=== PATIENT | male | born 1965 | race Caucasian/White ===

== ENCOUNTER → 2020-11-04 | Outpatient (CLI) | payer SELFPAY | LOC: M LABSMTC 10:04 | PROVIDERS: ATTEND Pediatrics | DX: Z20.822 Contact with and (suspected) exposure to COVID-19 (principal) ==

== ENCOUNTER 2021-09-12 17:58 | Inpatient (IN) | payer BC ==
[~2021-09-12] VITALS: Ht 198.1 cm; Wt 145.1 kg
[2021-09-12 18:46] LABS: BASO % 0.3 % (0.0-1.0); EOS % 0.2 % (0.0-3.0); HEMATOCRIT 43.1 % (42.0-52.0); HEMOGLOBIN 14.4 g/dl (13.5-17.5); LYMPH # 0.9 10^3/uL (1.5-5.0); LYMPH % 10.3 % (24.0-44.0); MEAN CORPUSCULAR HEMOGLOBIN 31.2 pg (27.0-33.0); MEAN CORPUSCULAR HGB CONC 33.4 g/dl (32.0-36.5); MEAN CORPUSCULAR VOLUME 93.3 fl (80.0-96.0); MONO # 0.5 10^3/uL (0.0-0.8); MONO % 5.4 % (2.0-8.0); NEUTROPHILS # 7.2 10^3/uL (1.5-8.5); NEUTROPHILS % 83.6 % (36.0-66.0); PLATELET COUNT, AUTOMATED 368 10^3/uL (150-450); RED BLOOD COUNT 4.62 10^6/uL (4.30-6.10); WHITE BLOOD COUNT 8.7 10^3/uL (4.0-10.0)
[2021-09-12 18:57] LABS: INR 0.86; PROTHROMBIN TIME 12.1 SECONDS (12.7-14.5)
[2021-09-12 18:58] LABS: PARTIAL THROMBOPLASTIN TIME 31.4 SECONDS (25.9-37.0)
[2021-09-12 19:00] LABS: D-DIMER QUANT 1611.01 ng/ml (<500)
[2021-09-12 19:07] LABS: ALBUMIN 3.1 GM/DL (3.2-5.2); ALT/SGPT 66 U/L (12-78); BILIRUBIN,TOTAL 0.4 MG/DL (0.2-1.0); BLOOD UREA NITROGEN 14 MG/DL (7-18); C REACTIVE PROTEIN QUANTITATIV 8.36 MG/DL (0.00-0.30); CALCIUM LEVEL 8.5 MG/DL (8.5-10.1); CARBON DIOXIDE LEVEL 20 MEQ/L (21-32); CHLORIDE LEVEL 112 MEQ/L (98-107); CREATININE FOR GFR 1.03 MG/DL (0.70-1.30); FERRITIN 437 NG/ML (26-388); GLOMERULAR FILTRATION RATE > 60.0 (>56); GLUCOSE, FASTING 114 MG/DL (70-100); LDH LACTATE DEHYDROGENASE 456 U/L (87-241); POTASSIUM SERUM 3.6 MEQ/L (3.5-5.1); SODIUM LEVEL 143 MEQ/L (136-145); TOTAL PROTEIN 7.1 GM/DL (6.4-8.2)
[2021-09-12 19:09] LABS: CK-MB VALUE MASS < 1.0 NG/ML (<3.6); CPK CREATINE PHOSPHOKINASE 248 U/L (39-308); TROPONIN I < 0.02 NG/ML (< 0.10)
[2021-09-12] MEDS ORDERED: HOME MED LIST COMPLETE! XX SCH (19:45)
[2021-09-12] MEDS ORDERED: ONDANSETRON 4MG/2ML VIAL IV PRN (22:20)
[2021-09-12] MEDS ORDERED: **hydrALAZINE** 10 MG TAB PO PRN (22:25)
[2021-09-13] MEDS ORDERED: REMDESIVIR 200 MG in NS 250 ML IV ONE ×2
[2021-09-13] MEDS: guaiFENesin ER 600 MG TAB PO SCH ×3 (00:09→20:39)
[2021-09-13] MEDS: IPRATROPIUM 0.5MG/ALBUTEROL 2.5MG INH SOL UD 3ML (DUONEB) NEB PRN ×2 (01:59→05:14)
[2021-09-13] MEDS ORDERED: SODIUM CHLORIDE 0.9% INJ 10 ML SYR IV ONE (02:00)
[2021-09-13 08:37] LABS: HEMATOCRIT 40.1 % (42.0-52.0); HEMOGLOBIN 13.6 g/dl (13.5-17.5); MEAN CORPUSCULAR HEMOGLOBIN 31.5 pg (27.0-33.0); MEAN CORPUSCULAR HGB CONC 33.9 g/dl (32.0-36.5); MEAN CORPUSCULAR VOLUME 92.8 fl (80.0-96.0); PLATELET COUNT, AUTOMATED 345 10^3/uL (150-450); RED BLOOD COUNT 4.32 10^6/uL (4.30-6.10); WHITE BLOOD COUNT 4.7 10^3/uL (4.0-10.0)
[2021-09-13 08:58] LABS: ANISOCYTOSIS 1+; ATYPICAL LYMPH 4 % (0-5); LYMPHOCYTES 15 % (16-44); MONOCYTES 9 % (0-5); NEUTROPHILS 72 % (28-66); PLATELET ESTIMATE NORMAL (NORMAL)
[2021-09-13] MEDS ORDERED: dexameTHASONE 4 MG/ML 1ML VIAL (J1100 PER 1MG) IV SCH (09:00)
[2021-09-13 09:03] LABS: BLOOD UREA NITROGEN 16 MG/DL (7-18); CALCIUM LEVEL 8.7 MG/DL (8.5-10.1); CARBON DIOXIDE LEVEL 22 MEQ/L (21-32); CHLORIDE LEVEL 114 MEQ/L (98-107); CREATININE FOR GFR 1.04 MG/DL (0.70-1.30); GLOMERULAR FILTRATION RATE > 60.0 (>56); GLUCOSE, FASTING 131 MG/DL (70-100); MAGNESIUM LEVEL 2.3 MG/DL (1.8-2.4); POTASSIUM SERUM 3.7 MEQ/L (3.5-5.1); SODIUM LEVEL 145 MEQ/L (136-145)
[2021-09-13] MEDS: ENOXAPARIN 40MG/0.4ML SYRINGE (J1650 PER 10MG) SC SCH (10:02)
[2021-09-13] MEDS: ASPIRIN 81 MG CHEW TABLET PO SCH (10:02)
[2021-09-13] MEDS: FLUTICASONE PROP 0.05% NASAL SPRAY 16 GM (FLONASE) NARES SCH ×3 (10:02→20:39)
[2021-09-13 11:40] VITALS: BP 146/90
[2021-09-13 12:00] VITALS: O2SAT 93
[2021-09-13 14:00] VITALS: BP 151/100
[2021-09-13 16:00] VITALS: O2SAT 93
[2021-09-13 20:00] VITALS: BP 145/72; O2SAT 95
[2021-09-13] MEDS: ALBUTEROL 90 MCG/ACT 8GM HFA INHALER INH SCH (20:19)
[2021-09-14] VITALS (7 sets, daily range): BP systolic 119–154; BP diastolic 62–73; O2SAT 90–99
[2021-09-14] MEDS: REMDESIVIR 100 MG in NS 250 ML IV SCH (00:48)
[2021-09-14] MEDS: SODIUM CHLORIDE 0.9% INJ 10 ML SYR IV SCH (01:50)
[2021-09-14 08:13] LABS: BASO % 0.3 % (0.0-1.0); EOS % 0.1 % (0.0-3.0); HEMATOCRIT 39.8 % (42.0-52.0); HEMOGLOBIN 13.4 g/dl (13.5-17.5); LYMPH % 13.7 % (24.0-44.0); MEAN CORPUSCULAR HEMOGLOBIN 31.1 pg (27.0-33.0); MEAN CORPUSCULAR HGB CONC 33.7 g/dl (32.0-36.5); MEAN CORPUSCULAR VOLUME 92.3 fl (80.0-96.0); MONO # 0.5 10^3/uL (0.0-0.8); MONO % 6.1 % (2.0-8.0); NEUTROPHILS # 5.9 10^3/uL (1.5-8.5); NEUTROPHILS % 79.4 % (36.0-66.0); PLATELET COUNT, AUTOMATED 407 10^3/uL (150-450); RED BLOOD COUNT 4.31 10^6/uL (4.30-6.10); WHITE BLOOD COUNT 7.4 10^3/uL (4.0-10.0)
[2021-09-14] MEDS: guaiFENesin ER 600 MG TAB PO SCH ×2 (08:22→21:46)
[2021-09-14] MEDS: ENOXAPARIN 40MG/0.4ML SYRINGE (J1650 PER 10MG) SC SCH (08:22)
[2021-09-14] MEDS: ASPIRIN 81 MG CHEW TABLET PO SCH (08:22)
[2021-09-14] MEDS: dexameTHASONE 4 MG/ML 1ML VIAL (J1100 PER 1MG) IV SCH (08:23)
[2021-09-14] MEDS: FLUTICASONE PROP 0.05% NASAL SPRAY 16 GM (FLONASE) NARES SCH ×2 (08:23→21:46)
[2021-09-14] MEDS: ALBUTEROL 90 MCG/ACT 8GM HFA INHALER INH SCH ×4 (08:28→19:51)
[2021-09-14 08:39] LABS: ALBUMIN 2.7 GM/DL (3.2-5.2); ALT/SGPT 47 U/L (12-78); BILIRUBIN,DIRECT 0.1 MG/DL (0.0-0.2); BILIRUBIN,TOTAL 0.3 MG/DL (0.2-1.0); BLOOD UREA NITROGEN 24 MG/DL (7-18); CALCIUM LEVEL 8.9 MG/DL (8.5-10.1); CARBON DIOXIDE LEVEL 24 MEQ/L (21-32); CHLORIDE LEVEL 112 MEQ/L (98-107); FERRITIN 298 NG/ML (26-388); GLOMERULAR FILTRATION RATE > 60.0 (>56); GLUCOSE, FASTING 116 MG/DL (70-100); LDH LACTATE DEHYDROGENASE 299 U/L (87-241); MAGNESIUM LEVEL 2.3 MG/DL (1.8-2.4); NT-PRO BNP 109 PG/ML (<125); POTASSIUM SERUM 3.6 MEQ/L (3.5-5.1); SODIUM LEVEL 144 MEQ/L (136-145)
[2021-09-14 08:46] LABS: CPK CREATINE PHOSPHOKINASE 488 U/L (39-308); TROPONIN I < 0.02 NG/ML (< 0.10)
[2021-09-14] MEDS ORDERED: dexameTHASONE 20MG/5ML VIAL (J1100 PER 1MG) IV SCH (09:00)
[2021-09-14 09:11] LABS: INR 0.99; PROTHROMBIN TIME 13.5 SECONDS (12.7-14.5)
[2021-09-14 09:12] LABS: PARTIAL THROMBOPLASTIN TIME 28.8 SECONDS (25.9-37.0)
[2021-09-15] VITALS (9 sets, daily range): BP systolic 123–133; BP diastolic 69–80; O2SAT 92–98
[2021-09-15] MEDS: REMDESIVIR 100 MG in NS 250 ML IV SCH ×2 (00:17→23:57)
[2021-09-15] MEDS: SODIUM CHLORIDE 0.9% INJ 10 ML SYR IV SCH (02:04)
[2021-09-15] MEDS: ACETAMINOPHEN TAB 650MG DOSE (2X325MG) PO PRN ×3 (02:12→17:03)
[2021-09-15] MEDS: ALBUTEROL 90 MCG/ACT 8GM HFA INHALER INH SCH ×4 (07:30→19:25)
[2021-09-15 07:35] LABS: BASO % 0.2 % (0.0-1.0); EOS % 0.3 % (0.0-3.0); HEMATOCRIT 36.4 % (42.0-52.0); HEMOGLOBIN 12.2 g/dl (13.5-17.5); LYMPH # 1.4 10^3/uL (1.5-5.0); LYMPH % 14.5 % (24.0-44.0); MEAN CORPUSCULAR HEMOGLOBIN 31.1 pg (27.0-33.0); MEAN CORPUSCULAR HGB CONC 33.5 g/dl (32.0-36.5); MEAN CORPUSCULAR VOLUME 92.9 fl (80.0-96.0); MONO # 0.6 10^3/uL (0.0-0.8); MONO % 6.8 % (2.0-8.0); NEUTROPHILS # 7.3 10^3/uL (1.5-8.5); NEUTROPHILS % 77.8 % (36.0-66.0); PLATELET COUNT, AUTOMATED 386 10^3/uL (150-450); RED BLOOD COUNT 3.92 10^6/uL (4.30-6.10); WHITE BLOOD COUNT 9.3 10^3/uL (4.0-10.0)
[2021-09-15 08:00] LABS: BLOOD UREA NITROGEN 24 MG/DL (7-18); CALCIUM LEVEL 8.2 MG/DL (8.5-10.1); CARBON DIOXIDE LEVEL 24 MEQ/L (21-32); CHLORIDE LEVEL 112 MEQ/L (98-107); CREATININE FOR GFR 0.92 MG/DL (0.70-1.30); GLOMERULAR FILTRATION RATE > 60.0 (>56); GLUCOSE, FASTING 97 MG/DL (70-100); MAGNESIUM LEVEL 2.4 MG/DL (1.8-2.4); SODIUM LEVEL 143 MEQ/L (136-145)
[2021-09-15] MEDS: FLUTICASONE PROP 0.05% NASAL SPRAY 16 GM (FLONASE) NARES SCH ×2 (09:00→20:16)
[2021-09-15] MEDS: guaiFENesin ER 600 MG TAB PO SCH ×2 (09:15→20:16)
[2021-09-15] MEDS: dexameTHASONE 4 MG/ML 1ML VIAL (J1100 PER 1MG) IV SCH (09:15)
[2021-09-15] MEDS: ASPIRIN 81 MG CHEW TABLET PO SCH (09:15)
[2021-09-15] MEDS: ENOXAPARIN 40MG/0.4ML SYRINGE (J1650 PER 10MG) SC SCH (09:16)
[2021-09-16] VITALS (7 sets, daily range): BP systolic 130–148; BP diastolic 80–88; O2SAT 92–96
[2021-09-16] MEDS: ACETAMINOPHEN TAB 650MG DOSE (2X325MG) PO PRN ×2 (01:31→11:12)
[2021-09-16] MEDS: SODIUM CHLORIDE 0.9% INJ 10 ML SYR IV SCH (01:32)
[2021-09-16 07:23] LABS: BASO % 0.4 % (0.0-1.0); EOS # 0.3 10^3/uL (0.0-0.5); EOS % 3.8 % (0.0-3.0); HEMATOCRIT 38.1 % (42.0-52.0); HEMOGLOBIN 12.5 g/dl (13.5-17.5); LYMPH % 28.1 % (24.0-44.0); MEAN CORPUSCULAR HEMOGLOBIN 30.9 pg (27.0-33.0); MEAN CORPUSCULAR HGB CONC 32.8 g/dl (32.0-36.5); MEAN CORPUSCULAR VOLUME 94.3 fl (80.0-96.0); MONO # 0.7 10^3/uL (0.0-0.8); MONO % 9.9 % (2.0-8.0); NEUTROPHILS # 4.1 10^3/uL (1.5-8.5); NEUTROPHILS % 57.2 % (36.0-66.0); PLATELET COUNT, AUTOMATED 391 10^3/uL (150-450); RED BLOOD COUNT 4.04 10^6/uL (4.30-6.10); WHITE BLOOD COUNT 7.2 10^3/uL (4.0-10.0)
[2021-09-16 07:36] LABS: INR 1.04; PARTIAL THROMBOPLASTIN TIME 29.7 SECONDS (25.9-37.0)
[2021-09-16 07:57] LABS: ALBUMIN 2.4 GM/DL (3.2-5.2); ALT/SGPT 47 U/L (12-78); BILIRUBIN,DIRECT 0.1 MG/DL (0.0-0.2); BILIRUBIN,TOTAL 0.4 MG/DL (0.2-1.0); BLOOD UREA NITROGEN 16 MG/DL (7-18); CALCIUM LEVEL 8.4 MG/DL (8.5-10.1); CARBON DIOXIDE LEVEL 24 MEQ/L (21-32); CHLORIDE LEVEL 110 MEQ/L (98-107); CREATININE FOR GFR 0.84 MG/DL (0.70-1.30); FERRITIN 243 NG/ML (26-388); GLOMERULAR FILTRATION RATE > 60.0 (>56); GLUCOSE, FASTING 90 MG/DL (70-100); LDH LACTATE DEHYDROGENASE 252 U/L (87-241); MAGNESIUM LEVEL 2.3 MG/DL (1.8-2.4); NT-PRO BNP 298 PG/ML (<125); POTASSIUM SERUM 3.5 MEQ/L (3.5-5.1); SODIUM LEVEL 142 MEQ/L (136-145); TOTAL PROTEIN 6.5 GM/DL (6.4-8.2)
[2021-09-16] MEDS: ALBUTEROL 90 MCG/ACT 8GM HFA INHALER INH SCH ×4 (07:58→20:46)
[2021-09-16] MEDS: FLUTICASONE PROP 0.05% NASAL SPRAY 16 GM (FLONASE) NARES SCH ×2 (08:57→21:00)
[2021-09-16] MEDS: guaiFENesin ER 600 MG TAB PO SCH ×2 (08:57→21:04)
[2021-09-16] MEDS: ASPIRIN 81 MG CHEW TABLET PO SCH (08:57)
[2021-09-16] MEDS: dexameTHASONE 4 MG/ML 1ML VIAL (J1100 PER 1MG) IV SCH (08:57)
[2021-09-16] MEDS: ENOXAPARIN 40MG/0.4ML SYRINGE (J1650 PER 10MG) SC SCH (08:58)
[2021-09-16] MEDS ORDERED: KETOROLAC 30 MG/ML 1ML VIAL IV ONE (10:00)
[2021-09-17] MEDS: REMDESIVIR 100 MG in NS 250 ML IV SCH (00:33)
[2021-09-17] MEDS: SODIUM CHLORIDE 0.9% INJ 10 ML SYR IV SCH (00:34)
[2021-09-17 00:53] VITALS: O2SAT 93
[2021-09-17 04:00] VITALS: O2SAT 95
[2021-09-17 06:00] VITALS: BP 140/64
[2021-09-17 08:00] VITALS: O2SAT 93
[2021-09-17] MEDS: ALBUTEROL 90 MCG/ACT 8GM HFA INHALER INH SCH ×3 (08:09→15:10)
[2021-09-17 08:22] LABS: BASO % 0.2 % (0.0-1.0); EOS # 0.1 10^3/uL (0.0-0.5); EOS % 1.2 % (0.0-3.0); HEMATOCRIT 37.2 % (42.0-52.0); HEMOGLOBIN 12.3 g/dl (13.5-17.5); LYMPH # 1.9 10^3/uL (1.5-5.0); LYMPH % 21.7 % (24.0-44.0); MEAN CORPUSCULAR HEMOGLOBIN 31.1 pg (27.0-33.0); MEAN CORPUSCULAR HGB CONC 33.1 g/dl (32.0-36.5); MEAN CORPUSCULAR VOLUME 93.9 fl (80.0-96.0); MONO # 0.8 10^3/uL (0.0-0.8); MONO % 8.6 % (2.0-8.0); NEUTROPHILS % 67.6 % (36.0-66.0); PLATELET COUNT, AUTOMATED 423 10^3/uL (150-450); RED BLOOD COUNT 3.96 10^6/uL (4.30-6.10); WHITE BLOOD COUNT 8.8 10^3/uL (4.0-10.0)
[2021-09-17 08:52] LABS: BLOOD UREA NITROGEN 20 MG/DL (7-18); CALCIUM LEVEL 8.6 MG/DL (8.5-10.1); CARBON DIOXIDE LEVEL 23 MEQ/L (21-32); CHLORIDE LEVEL 112 MEQ/L (98-107); CREATININE FOR GFR 0.84 MG/DL (0.70-1.30); GLOMERULAR FILTRATION RATE > 60.0 (>56); GLUCOSE, FASTING 106 MG/DL (70-100); MAGNESIUM LEVEL 2.2 MG/DL (1.8-2.4); POTASSIUM SERUM 3.7 MEQ/L (3.5-5.1); SODIUM LEVEL 142 MEQ/L (136-145)
[2021-09-17] MEDS: FLUTICASONE PROP 0.05% NASAL SPRAY 16 GM (FLONASE) NARES SCH (09:00)
[2021-09-17] MEDS: guaiFENesin ER 600 MG TAB PO SCH (09:12)
[2021-09-17] MEDS: ENOXAPARIN 40MG/0.4ML SYRINGE (J1650 PER 10MG) SC SCH (09:12)
[2021-09-17] MEDS: ASPIRIN 81 MG CHEW TABLET PO SCH (09:12)
[2021-09-17] MEDS: dexameTHASONE 4 MG/ML 1ML VIAL (J1100 PER 1MG) IV SCH (09:13)
[2021-09-17 12:00] VITALS: O2SAT 95
[2021-09-17] MEDS ORDERED: PRED10TA2 PO (13:17)
== END 2021-09-17 15:12 | disposition home or self-care (01) | DRG 137 ==
LOC: EDBD 17:58 → M ED 17:58 → M ED INP 21:46 → ENRESERV 09-13 09:10 → M 4MAIN 09-13 11:10
PROVIDERS: ADMIT Internal Medicine; ATTEND Family Medicine
DX: U07.1 COVID-19 (principal); J96.01 Acute respiratory failure with hypoxia; J12.82 Pneumonia due to coronavirus disease 2019; E66.9 Obesity, unspecified; Z90.81 Acquired absence of spleen; Z68.36 Body mass index [BMI] 36.0-36.9, adult

== ENCOUNTER 2022-01-06 10:12 | Emergency (ER) | payer BC ==
[~2022-01-06] VITALS: Ht 198.1 cm; Wt 151.0 kg
[~2022-01-06 10:12] MED LIST: PRED10TA2 PO
[2022-01-06] MEDS ORDERED: IPRATROPIUM 0.5MG/ALBUTEROL 2.5MG INH SOL UD 3ML (DUONEB) NEB ONE (13:25)
[2022-01-06 13:59] LABS: BASO # 0.1 10^3/uL (0.0-0.2); BASO % 0.6 % (0.0-1.0); EOS # 0.1 10^3/uL (0.0-0.5); EOS % 0.5 % (0.0-3.0); HEMATOCRIT 45.7 % (42.0-52.0); HEMOGLOBIN 15.1 g/dl (13.5-17.5); LYMPH % 19.7 % (24.0-44.0); MEAN CORPUSCULAR HEMOGLOBIN 30.9 pg (27.0-33.0); MEAN CORPUSCULAR VOLUME 93.5 fl (80.0-96.0); MONO # 0.4 10^3/uL (0.0-0.8); MONO % 3.7 % (2.0-8.0); NEUTROPHILS # 7.7 10^3/uL (1.5-8.5); NEUTROPHILS % 75.2 % (36.0-66.0); PLATELET COUNT, AUTOMATED 335 10^3/uL (150-450); RED BLOOD COUNT 4.89 10^6/uL (4.30-6.10); WHITE BLOOD COUNT 10.3 10^3/uL (4.0-10.0)
[2022-01-06] MEDS ORDERED: FLUTISP (14:07)
[2022-01-06] MEDS ORDERED: LORA-674 PO (14:07)
[2022-01-06 14:29] LABS: CK-MB VALUE MASS 1.4 NG/ML (<3.6); MB/CK RELATIVE INDEX 0.62 (< OR =4)
[2022-01-06] MEDS ORDERED: ISOVUE-370 76% 100ML VIAL As Ordered ONE (15:29)
[2022-01-06] MEDS ORDERED: PROAAER10 INH (16:02)
[2022-01-06 16:23] VITALS: BP 138/93
== END 2022-01-06 16:50 | disposition home or self-care (01) ==
LOC: M ED 10:12
DX: R06.02 Shortness of breath (principal); I10 Essential (primary) hypertension; Z86.16 Personal history of COVID-19; Z79.899 Other long term (current) drug therapy
CPT/HCPCS: 36415; 71046; 71275; 80047; 82550; 82553; 84484; 85025; 85379; 93005; 94640; 99284; Q9967

== ENCOUNTER 2022-01-14 14:14 | Emergency (ER) | payer BC ==
[~2022-01-14] VITALS: Ht 200.7 cm; Wt 147.0 kg
[~2022-01-14 14:14] MED LIST changes: +FLUTISP; +LORA-674 PO; +PROAAER10 INH
[2022-01-14 16:03] LABS: BASO # 0.1 10^3/uL (0.0-0.2); BASO % 0.8 % (0.0-1.0); EOS # 0.2 10^3/uL (0.0-0.5); EOS % 2.1 % (0.0-3.0); HEMATOCRIT 40.9 % (42.0-52.0); HEMOGLOBIN 13.9 g/dl (13.5-17.5); LYMPH # 1.8 10^3/uL (1.5-5.0); LYMPH % 22.8 % (24.0-44.0); MEAN CORPUSCULAR HEMOGLOBIN 31.4 pg (27.0-33.0); MEAN CORPUSCULAR VOLUME 92.5 fl (80.0-96.0); MONO # 0.5 10^3/uL (0.0-0.8); MONO % 6.5 % (2.0-8.0); NEUTROPHILS # 5.3 10^3/uL (1.5-8.5); NEUTROPHILS % 67.5 % (36.0-66.0); PLATELET COUNT, AUTOMATED 320 10^3/uL (150-450); RED BLOOD COUNT 4.42 10^6/uL (4.30-6.10); WHITE BLOOD COUNT 7.8 10^3/uL (4.0-10.0)
[2022-01-14 16:42] LABS: ALBUMIN 4.1 GM/DL (3.2-5.2); ALT/SGPT 34 U/L (12-78); BILIRUBIN,DIRECT < 0.1 MG/DL (0.0-0.2); BILIRUBIN,TOTAL 0.5 MG/DL (0.2-1.0); BLOOD UREA NITROGEN 15 MG/DL (7-18); CALCIUM LEVEL 9.1 MG/DL (8.5-10.1); CARBON DIOXIDE LEVEL 24 MEQ/L (21-32); CHLORIDE LEVEL 110 MEQ/L (98-107); CREATININE FOR GFR 1.21 MG/DL (0.70-1.30); GLOMERULAR FILTRATION RATE > 60.0 (>56); GLUCOSE, FASTING 111 MG/DL (70-100); NT-PRO BNP 40 PG/ML (<125); POTASSIUM SERUM 5.4 MEQ/L (3.5-5.1); SODIUM LEVEL 137 MEQ/L (136-145); TOTAL PROTEIN 7.6 GM/DL (6.4-8.2)
[2022-01-14 18:14] VITALS: BP 144/96
== END 2022-01-14 18:20 | disposition home or self-care (01) ==
LOC: M ED 14:14
DX: R09.82 Postnasal drip (principal); R05.9 Cough, unspecified; R06.00 Dyspnea, unspecified; I10 Essential (primary) hypertension; Z86.16 Personal history of COVID-19; Z79.51 Long term (current) use of inhaled steroids; Z79.899 Other long term (current) drug therapy

== ENCOUNTER → 2022-03-23 | Outpatient (CLI) | payer BC ==
[~2022-03-23] MED LIST changes: +ASHW500C PO; +MONT10TA97
== END ==
LOC: M LABSMTC 10:38
PROVIDERS: ATTEND Anesthesiology
DX: Z20.828 Contact with and (suspected) exposure to other viral communicable diseases (principal); Z11.59 Encounter for screening for other viral diseases

== ENCOUNTER 2022-03-28 09:17 | Day surgery (SDC) | payer BC ==
[~2022-03-28] VITALS: Ht 198.1 cm; Wt 127.4 kg
[2022-03-28] MEDS ORDERED: MELA10CA6 PO (10:04)
[2022-03-28] MEDS ORDERED: LR 1,000 ML IV SCH ×3 (10:20→15:00)
[2022-03-28] MEDS ORDERED: OXYMETAZOLINE 0.05% NASAL SPRAY (AFRIN) As Ordered ONE (12:14)
[2022-03-28] MEDS ORDERED: COCAINE 4% 4ML NASAL SOLUTION BTL As Ordered ONE (12:14)
[2022-03-28] MEDS ORDERED: LIDOCAINE W/EPINEPHRINE 1% 20ML VIAL As Ordered ONE (12:14)
[2022-03-28] MEDS ORDERED: ROCURONIUM BROMIDE 50 MG/5 ML VIAL As Ordered ONE (13:01)
[2022-03-28] MEDS ORDERED: propofoL 200 MG/20 ML VIAL As Ordered ONE (13:01)
[2022-03-28] MEDS ORDERED: dexameTHASONE 4 MG/ML 1ML VIAL (J1100 PER 1MG) As Ordered ONE (13:01)
[2022-03-28] MEDS ORDERED: MIDAZOLAM INJ 2MG/2ML VIAL (J2250 PER 1MG) As Ordered ONE (13:01)
[2022-03-28] MEDS ORDERED: LIDOCAINE 2% 100MG/5ML SDV (FOR ANES.) As Ordered ONE (13:01)
[2022-03-28] MEDS ORDERED: SUGAMMADEX SODIUM 500 MG/5 ML VIAL (BRIDION) As Ordered ONE (13:01)
[2022-03-28] MEDS ORDERED: ePHEDrine SULFATE 25 MG/5 ML(5MG/ML) SYRINGE As Ordered ONE (13:01)
[2022-03-28] MEDS ORDERED: fentaNYL 250 MCG/5 ML INJECTION As Ordered ONE (13:01)
[2022-03-28] MEDS ORDERED: ONDANSETRON 4MG/2ML VIAL As Ordered ONE (13:01)
[2022-03-28] MEDS ORDERED: fentaNYL 100 MCG/2 ML INJECTION IV PRN (14:15)
[2022-03-28] MEDS ORDERED: ONDANSETRON 4MG/2ML VIAL IV PRN ×2 (14:15→15:05)
[2022-03-28] MEDS ORDERED: oxyCODONE 5MG TAB PO PRN (14:15)
[2022-03-28] MEDS ORDERED: MORPHINE 2 MG/ML 1ML VIAL IV PRN (14:15)
[2022-03-28] MEDS ORDERED: ALBUTEROL SULFATE 2.5 MG/0.5 ML INH NEB SOLN INH ONE (14:30)
[2022-03-28] MEDS ORDERED: ACETAMINOPHEN *IV* 1,000 MG in IV 1 EA IV ONE (15:05)
[2022-03-28] MEDS ORDERED: ANEXSIA, NORCO 7.5MG/325MG TABLET(HYDROCODONE/APAP) PO PRN (15:05)
[2022-03-28] MEDS ORDERED: MORPHINE 10 MG/ML 1ML VIAL IV PRN (15:05)
[2022-03-28 17:12] VITALS: BP 132/82
[2022-03-29] MEDS ORDERED: AMOX500C (07:42)
[2022-03-29] MEDS ORDERED: HYDR-4514 (07:42)
== END 2022-03-28 17:20 | disposition home or self-care (01) ==
LOC: M SDC 09:17
PROVIDERS: ATTEND Otolaryngology
DX: J34.2 Deviated nasal septum (principal); J34.3 Hypertrophy of nasal turbinates; F41.9 Anxiety disorder, unspecified; R51.9 Headache, unspecified; Z79.51 Long term (current) use of inhaled steroids; Z79.899 Other long term (current) drug therapy
CPT/HCPCS: 30520; 30802; 88300; C9046; J0131; J1100; J2250; J2405; J3010

== ENCOUNTER 2022-03-29 07:25 | Emergency (ER) | payer BC ==
[~2022-03-29] VITALS: Ht 198.1 cm; Wt 129.4 kg
[~2022-03-29 07:25] MED LIST changes: +MELA10CA6 PO
[2022-03-29 07:27] VITALS: BP 135/79
[2022-03-29] MEDS ORDERED: HYDR-4514 (07:42)
[2022-03-29] MEDS ORDERED: AMOX500C (07:42)
== END 2022-03-29 08:43 | disposition left against medical advice (07) ==
LOC: M ED 08:39
DX: Z53.21 Procedure and treatment not carried out due to patient leaving prior to being seen by health care provider (principal)

== ENCOUNTER → 2022-04-12 | Outpatient (CLI) | payer BC ==
[~2022-04-12] MED LIST changes: +AMOX500C; +HYDR-4514
[2022-04-12 15:20] LABS: HEMOGLOBIN A1c 5.8 %
[2022-04-12 15:46] LABS: BLOOD UREA NITROGEN 16 MG/DL (7-18); CALCIUM LEVEL 9.6 MG/DL (8.5-10.1); CARBON DIOXIDE LEVEL 27 MEQ/L (21-32); CHLORIDE LEVEL 108 MEQ/L (98-107); CHOLESTEROL LEVEL 190 MG/DL (<200); CHOLESTEROL RISK RATIO 4.634 (<5); CREATININE FOR GFR 0.98 MG/DL (0.70-1.30); GLOMERULAR FILTRATION RATE > 60.0 (>56); GLUCOSE, FASTING 121 MG/DL (70-100); HDL CHOLESTEROL 41 MG/DL (>40); LDL CHOLESTEROL 97 MG/DL (<100); NON-HDL-C 149 MG/DL; POTASSIUM SERUM 4.3 MEQ/L (3.5-5.1); SODIUM LEVEL 142 MEQ/L (136-145); TRIGLYCERIDES LEVEL 262 MG/DL (<150)
== END ==
LOC: M LAB 14:00
PROVIDERS: ATTEND Family Medicine
DX: Z13.1 Encounter for screening for diabetes mellitus (principal); Z13.220 Encounter for screening for lipoid disorders

== ENCOUNTER 2023-02-27 02:36 | Emergency (ER) | payer BC, SELFPAY ==
[~2023-02-27] VITALS: Ht 193 cm; Wt 137.4 kg
[~2023-02-27 02:36] MED LIST changes: +FLUT50SP17; -FLUTISP
[2023-02-27] MEDS ORDERED: [UNRECOGNIZED DRUG - OTHER] PO (02:47)
[2023-02-27] MEDS ORDERED: KETOROLAC 30 MG/ML 1ML VIAL IV ONE (03:40)
[2023-02-27] MEDS ORDERED: ONDANSETRON 4MG 2ML VIAL As Ordered ONE (03:43)
[2023-02-27 03:45] LABS: BASO # 0.1 10^3/uL (0.0-0.2); BASO % 0.9 % (0.0-1.0); EOS # 0.1 10^3/uL (0.0-0.5); EOS % 1.8 % (0.0-3.0); HEMOGLOBIN 14.1 g/dl (13.5-17.5); LYMPH # 1.2 10^3/uL (1.5-5.0); LYMPH % 16.1 % (24.0-44.0); MEAN CORPUSCULAR HGB CONC 32.8 g/dl (32.0-36.5); MEAN CORPUSCULAR VOLUME 97.5 fl (80.0-96.0); MONO # 0.6 10^3/uL (0.0-0.8); MONO % 7.9 % (2.0-8.0); NEUTROPHILS # 5.4 10^3/uL (1.5-8.5); PLATELET COUNT, AUTOMATED 273 10^3/uL (150-450); RED BLOOD COUNT 4.41 10^6/uL (4.30-6.10); WHITE BLOOD COUNT 7.4 10^3/uL (4.0-10.0)
[2023-02-27] MEDS ORDERED: ONDANSETRON 4MG 2ML VIAL IV ONE (03:45)
[2023-02-27 04:19] LABS: BLOOD UREA NITROGEN 15 MG/DL (9-23); CALCIUM LEVEL 8.8 MG/DL (8.5-10.1); CARBON DIOXIDE LEVEL 23 MMOL/L (20-31); CHLORIDE LEVEL 109 MMOL/L (98-107); CREATININE FOR GFR 1.23 MG/DL (0.70-1.30); GLOMERULAR FILTRATION RATE > 60.0 (>56); GLUCOSE, FASTING 137 MG/DL (60-100); POTASSIUM SERUM 3.9 MMOL/L (3.5-5.1); SODIUM LEVEL 142 MMOL/L (136-145)
[2023-02-27 06:01] VITALS: BP 179/112
[2023-02-27] MEDS ORDERED: PERCOCET 5MG/325MG TAB PO ONE (06:10)
[2023-02-27] MEDS ORDERED: FLOM0.4C39 PO (06:11)
[2023-02-27] MEDS ORDERED: KETO10TAB PO (06:11)
== END 2023-02-27 06:36 | disposition home or self-care (01) ==
LOC: M ED 02:36
DX: N20.1 Calculus of ureter (principal); N28.1 Cyst of kidney, acquired; Z87.442 Personal history of urinary calculi; Z79.899 Other long term (current) drug therapy
CPT/HCPCS: 74176; 80047; 80048; 81001; 83605; 85025; 87040; 96374; 99284; J1885; J2405

== ENCOUNTER 2025-02-17 14:22 | Emergency (ER) | payer BC, OTHER, SELFPAY ==
[~2025-02-17] VITALS: Ht 200.7 cm; Wt 141.5 kg
[~2025-02-17 14:22] MED LIST changes: -FLUT50SP17; +FLUTISP; +KETO10TAB PO; +LORA-1041 PO; -LORA-674 PO; +TAMS-18 PO; +[UNRECOGNIZED DRUG - OTHER] PO
[2025-02-17] MEDS: NS (Normal Saline) 0.9% 1,000 ML IV ONE (19:37)
[2025-02-17] MEDS: ALBUTEROL SULFATE 2.5MG/0.5ML INH CONCENTRATE NEB SOLN NEB ONE (19:37)
[2025-02-17] MEDS: ACETAMINOPHEN 500 MG TAB PO ONE (19:37)
[2025-02-17] MEDS ORDERED: ALBU2.5V10 NEB (20:45)
[2025-02-17] MEDS ORDERED: OSEL75CA PO (20:47)
[2025-02-17 20:52] VITALS: BP 139/85; TEMP 98.4; O2SAT 95
[2025-02-17] MEDS: OSELTAMIVIR PHOSPHATE 75 MG CAP PO ONE (20:59)
== END 2025-02-17 21:00 | disposition home or self-care (01) ==
LOC: M ED 14:22
DX: J09.X2 Influenza due to identified novel influenza A virus with other respiratory manifestations (principal); R51.9 Headache, unspecified; Z79.52 Long term (current) use of systemic steroids; Z79.899 Other long term (current) drug therapy